=== PATIENT | female | born 1955 | race Caucasian/White ===

== ENCOUNTER 2018-12-07 07:40 | Outpatient (CLI) | payer BC ==
--- NOTE | 2018-12-15 09:13 | MMO ---
Bilateral MAMMO Bilat Screen [facility]. CLINICAL HISTORY: Patient is 63 years old and is seen for screening. The patient has no family history of breast cancer. The patient has no personal history of cancer. The patient has a history of left Lumpectomy at age 32 - benign. VIEWS: The views performed were: bilateral craniocaudal with tomosynthesis and bilateral mediolateral oblique with tomosynthesis. FILMS COMPARED: The present examination has been [facility] to [facility]2015 and 12/02/2017. This study has been interpreted with the assistance of computer-aided detection. MAMMOGRAM FINDINGS: There are scattered fibroglandular densities. There are stable benign appearing calcifications seen in the left breast. There are no suspicious masses, calcifications or areas of architectural distortion. There are no suspicious masses, suspicious calcifications, or new areas of architectural distortion. IMPRESSION: THERE IS NO MAMMOGRAPHIC EVIDENCE OF MALIGNANCY. A ROUTINE FOLLOW-UP MAMMOGRAM IN 1 YEAR IS RECOMMENDED. THE RESULTS OF THIS EXAM WERE SENT TO THE PATIENT. ACR BI-RADS Category 2 - Benign finding MAMMOGRAPHY NOTE: 1. A negative mammogram report should not delay a biopsy if a dominant of clinically suspicious mass is present. 2. Approximately 10% to 15% of breast cancers are not detected by mammography. 3. Adenosis and dense breasts may obscure an underlying neoplasm. Reported by: HU LOCKHART MD Electonically Signed: [id number]
== END 2018-12-07 07:41 | disposition home or self-care (01) ==
LOC: BICMAMMO 07:40
PROVIDERS: ATTEND Internal Medicine
DX: Z12.31 Encounter for screening mammogram for malignant neoplasm of breast (principal); Z91.89 Other specified personal risk factors, not elsewhere classified
CPT/HCPCS: 77063; 77067

== ENCOUNTER 2019-07-01 14:25 | Outpatient (CLI) | payer MEDICARE ==
--- NOTE | 2019-07-01 14:57 | RAD ---
Right hand 3 views HISTORY: Right hand pain. FINDINGS: Mild diffuse joint space narrowing. Osteophytosis most pronounced on the lateral view invol ving the distal interphalangeal joint of the index finger. Tiny nonspecific ossific fragments project posterior to the heads of the middle phalanges of all fingers. No acute fracture, dislocation, or aggressive osseous erosions. IMPRESSION : Mild osteoarthritic changes. No acute osseous abnormalities are demonstrated.
--- NOTE | 2019-07-01 14:59 | RAD ---
Left hand 3 views HISTORY: Pain. FINDINGS: Very mild widespread osteophytosis. Mild joint space narrowing at the distal interphalangea l joint of the index finger. Small intraosseous cyst at the medial head of the scaphoid. No acute fracture, dislocation, or aggressive osseous erosions. IMPRESSION : Mild osteoarthritic changes. No acute osseous abnormalities are demonstrated.
== END 2019-07-01 14:26 | disposition home or self-care (01) ==
LOC: BICRAD 14:25
PROVIDERS: ATTEND Internal Medicine
DX: M79.642 Pain in left hand (principal); M79.641 Pain in right hand; M19.042 Primary osteoarthritis, left hand; M19.041 Primary osteoarthritis, right hand
CPT/HCPCS: 36415; 83520; 85652; 86140; 86160; 86200; 86225; 86235; 86376

== ENCOUNTER 2019-07-28 13:44 | Outpatient (CLI) | payer MEDICARE ==
--- NOTE | 2019-07-28 17:12 | CT ---
CT CHEST WITHOUT CONTRAST: 07/28/19 INDICATIONS: Sarcoidosis. FINDINGS: The lungs are clear with no infiltrate. There is mild interstitial thickening seen diffusely bilatera lly, primarily in the periphery of both lung nicolas. This maybe secondary to the patient's diagnosis of sarcoidosis. There is mild stranding in the lower lobes posteriorly. There is no nodularity seen. Review of the mediastinum shows no evidence of adenopathy. No evidence of axillary adenopathy. Images through upper abdomen unremarkable. Osseous structures unremarkable with mild to moderate degenerati ve changes in the thoracic spine. Anterior osteophytes and end plate sclerosis is prominent at the T7 -T8 and T8-T9 levels. IMPRESSION: 1. Mild interstitial bilaterally. 2. CT chest otherwise unremarkable. No adenopathy. POS: AH
== END 2019-07-28 13:45 | disposition home or self-care (01) ==
LOC: BICCT 13:44
PROVIDERS: ATTEND Orthopaedic Surgery Hand Surgery
DX: D86.9 Sarcoidosis, unspecified (principal)
CPT/HCPCS: 71250

== ENCOUNTER 2019-12-10 08:54 | Outpatient (CLI) | payer MEDICARE ==
--- NOTE | 2019-12-10 09:42 | BD ---
EXAM: DEXA bone density examination HISTORY: 64-year-old postmenopausal female for screening COMPARISON: None FINDINGS: L1--bone mineral density 0.791 g/sq cm; T score -1.8 L2--bone mineral density 0.817 g/sq cm; T score -1.9 L3--bone mineral density 0.817 g/sq cm; T score -2.4 L4--bone mineral density 0.827 g/sq cm; T score -2.1 Total L1-L4--bone mineral density 0.814 g/sq cm; T score -2.1 Left femoral neck--bone mineral density0.700; T score -1.3 Total proximal left femur--bone mineral density 0.900; T score -0.3 IMPRESSION: Osteopenia. This patient has a 10 year WHO fracture risk of a major osteoporotic fracture of 8.5% and of a hip fracture of 0.8%.
--- NOTE | 2019-12-10 09:49 | MMO ---
Bilateral MAMMO Bilat Screen [facility]. CLINICAL HISTORY: Patient is 64 years old and is seen for screening. The patient has no family history of breast cancer. The patient has no personal history of cancer. The patient has a history of left Lumpectomy at age 32 - benign. VIEWS: The views performed were: bilateral craniocaudal with tomosynthesis and bilateral mediolateral oblique with tomosynthesis. FILMS COMPARED: The present examination has been compared to prior imaging [facility] at [facility], [facility] and [facility]. This study has been interpreted with the assistance of computer-aided detection. MAMMOGRAM FINDINGS: There are scattered fibroglandular densities. There are post operative changes seen in the left breast. There are no suspicious masses, suspicious calcifications, or new areas of architectural distortion. IMPRESSION: THERE IS NO MAMMOGRAPHIC EVIDENCE OF MALIGNANCY. A ROUTINE FOLLOW-UP MAMMOGRAM IN 1 YEAR IS RECOMMENDED. THE RESULTS OF THIS EXAM WERE SENT TO THE PATIENT. ACR BI-RADS Category 2 - Benign finding MAMMOGRAPHY NOTE: 1. A negative mammogram report should not delay a biopsy if a dominant of clinically suspicious mass is present. 2. Approximately 10% to 15% of breast cancers are not detected by mammography. 3. Adenosis and dense breasts may obscure an underlying neoplasm. Reported by: DONN BRICEÑO MD Electonically Signed: [id number]
== END 2019-12-10 08:55 | disposition home or self-care (01) ==
LOC: BICMAMMO 08:54
PROVIDERS: ATTEND Internal Medicine
DX: Z12.31 Encounter for screening mammogram for malignant neoplasm of breast (principal); M85.89 Other specified disorders of bone density and structure, multiple sites; Z91.89 Other specified personal risk factors, not elsewhere classified
CPT/HCPCS: 77063; 77067; 77080

== ENCOUNTER 2020-04-13 12:57 | Outpatient (CLI) | payer MEDICARE ==
--- NOTE | 2020-04-13 14:30 | MRI ---
MRI of thethoracic spine: 04/13/2020 COMPARISON:None available HISTORY:Thoracic spondylosis,Neck pain and back pain following an injury 2 weeks ago TECHNIQUE: Multiplanar multisequence MR imaging of thethoracic spine without contrast Findings:The sagittal STIR imaging demonstrates no focal area of thoracic spine vertebral body edema. No anterolisthesis or retrolisthesis is noted within the thoracic spine. There is no focal area of abnormal thoracic cord signal. T1-2: Mild facet hypertrophy with no central canal or neural foraminal stenosis. T2-3: Unremarkable T3-4: Mild bilateral facet hypertrophy with no significant central canal or neural foraminal stenosis . T4-5: Unremarkable T5-6: Unremarkable T6-7: Unremarkable T7-8: Disc space narrowing with disc desiccation and minimal disc bulge. Mild anterior osteophyte for mation. No central canal or neural foraminal stenosis. T8-9: Unremarkable. T9-10: Unremarkable. T10-11: Unremarkable. T11-12: Unremarkable. T12-L1: Unremarkable. T1 and T2 hyperintense vertebral body T2 and T9 lesion noted posteriorly, evidence of a benign shannan ioma. IMPRESSION:No significant central canal or neural foraminal stenosis.
--- NOTE | 2020-04-13 14:38 | MRI ---
MRI cervical spine noncontrast: 04/13/2020 HISTORY: 65-year-old female with new onset cervical radiculopathy COMPARISON: None FINDINGS: Vertebral body heights are maintained. No major bone marrow signal abnormality. Cervical spinal cord is normal in size and signal, with no extrinsic impingement. No evidence of strategic prominent focal disc herniation. C1-2: Normal C2-3: Moderate right facet DJD. Otherwise normal. C3-4: Small bilateral uncinate process osteophytes and severe right facet degenerative hypertrophy re sult in moderate right neural foraminal stenosis. No central spinal canal stenosis or left neural foraminal stenosis. Mild left facet DJD. Disc space maintained. C4-5: Minimal disc space narrowing. No central spinal canal stenosis. No high-grade neural foraminal stenosis. Moderate to severe left facet degenerative hypertrophy. Minimal right facet DJD. C5-6: Moderate disc space narrowing. Shallow, broad-based disc protrusion and minimal retrolisthesis of C5 on C6 encroach upon the ventral aspect of spinal canal causing mild central spinal canal stenosis. Small bilateral uncinate process osteophytes. Mild bilateral neural foraminal stenosis. Ess entially normal right facet joint. Mild left facet DJD. C6-7: Normal C7-T1: Mild to moderate disc space narrowing. Mild bilateral facet DJD, left greater than right. No c entral spinal canal stenosis. Mild bilateral neural foraminal stenosis. IMPRESSION: 1. Mild cervical spondylosis consisting of a few levels of mild degenerative disc disease, and right upper level high-grade facet osteoarthrosis. 2. No gross high-grade central spinal canal stenosis at any level. 3. Right neural foraminal stenosis at C4-5.
--- NOTE | 2020-04-13 14:55 | MRI ---
MR the lumbar spine without contrast: 04/13/2020 History: Lumbar radiculopathy COMPARISON: None. TECHNIQUE: Multiplanar multisequence MR images were obtained of lumbar spine without IV contrast FINDINGS: On the basis of 5 lumbar type vertebral bodies, conus medullaris terminates at [id number] level. Sagittal STIR imaging demonstrates no focal area of osseous marrow edema. T12-L1:Mild bilateral facet hypertrophy with no central canal or neural foraminal stenosis. L1-2:No central canal or neural foraminal stenosis. L2-3:Disc desiccation and mild disc bulge. Mild facet hypertrophy. No significant central canal or ne ural foraminal stenosis. L3-4:Disc desiccation and mild bilateral facet hypertrophy with no significant central canal or neura l foraminal stenosis. L4-5:Mild bilateral facet hypertrophy, disc desiccation, and disc space narrowing with no significant central canal or neural foraminal stenosis. L5-S1:Mild facet hypertrophy, right greater than left. No significant central canal or neural foramin al stenosis. Image retroperitoneal structures demonstrateno acute findings. IMPRESSION: No significant central canal or neural foraminal stenosis.
== END 2020-04-13 12:58 | disposition home or self-care (01) ==
LOC: BICMRI 12:57
PROVIDERS: ATTEND Internal Medicine
DX: M47.814 Spondylosis without myelopathy or radiculopathy, thoracic region (principal); M54.16 Radiculopathy, lumbar region; M47.22 Other spondylosis with radiculopathy, cervical region; M48.02 Spinal stenosis, cervical region; M50.30 Other cervical disc degeneration, unspecified cervical region
CPT/HCPCS: 72141; 72146; 72148

== ENCOUNTER 2020-04-20 12:00 | Outpatient (CLI) | payer MEDICARE | END 2020-04-20 12:01 | disposition home or self-care (01) | LOC: CT 12:00 | PROVIDERS: ATTEND Internal Medicine | DX: R22.2 Localized swelling, mass and lump, trunk (principal) | CPT/HCPCS: 70490 ==

== ENCOUNTER 2020-12-11 07:55 | Outpatient (CLI) | payer MEDICARE | END 2020-12-11 07:56 | disposition home or self-care (01) | LOC: BICMAMMO 07:55 | PROVIDERS: ATTEND Internal Medicine | DX: Z12.31 Encounter for screening mammogram for malignant neoplasm of breast (principal); Z98.890 Other specified postprocedural states; N64.89 Other specified disorders of breast | CPT/HCPCS: 77063; 77067 ==

== ENCOUNTER 2020-12-14 14:10 | Outpatient (CLI) | payer MEDICARE | END 2020-12-14 14:11 | disposition home or self-care (01) | LOC: BICMAMMO 14:10 | PROVIDERS: ATTEND Internal Medicine | DX: R92.2 Inconclusive mammogram (principal); N63.11 Unspecified lump in the right breast, upper outer quadrant | CPT/HCPCS: 76642; 77065; G0279 ==

== ENCOUNTER 2021-01-12 10:49 | Outpatient (CLI) | payer MEDICARE ==
[2021-01-12 12:30] LABS: #Eosinphils 0.1 10x3/uL (0.0-0.5); #Monocytes 0.5 10x3/uL (0.0-1.1); %Basophils 0.5 % (0.0-2.0); %Eosinophils 1.8 % (0.0-6.0); %Lymphocytes 35.4 % (18.0-47.0); %Monocytes 8.2 % (0.0-10.0); %Neutrophils 53.9 % (40.0-75.0); Hemoglobin 15.5 g/dL (12.0-15.5); Mean Corpuscular HGB CONC 33.9 g/dL (32.0-36.0); Mean Corpuscular Hemoglobin 30.9 pg (27.0-33.0); Mean Corpuscular Volume 91.2 fl (81.6-98.3); Mean Platelet Volume 12.2 fl (7.4-10.4); Platelet Count 191 10x3/uL (150-450); RBC Distribution Width 11.9 % (11.5-14.5); Red Blood Cell (RBC) Count 5.01 10x6/uL (3.90-5.03); White Blood Cell (WBC) Count 5.6 10x3/uL (3.5-10.5)
[2021-01-12 12:46] LABS: Anion Gap 15 mmol/L (10-20); BUN (Urea Nitrogen) 17 mg/dL (9.8-20.1); Calc. Creatinine Clearance 0 mL/min (70-130); Calcium 10.2 mg/dL (7.8-10.44); Carbon Dioxide 28 mmol/L (23-31); Chloride 103 mmol/L (98-107); Glucose 102 mg/dL (80-115); Potassium 4.4 mmol/L (3.5-5.1); Sodium 142 mmol/L (136-145)
[2021-01-12 23:18] LABS: SARS-CoV-2 PCR by NAA Not Detected (NotDetected)
== END 2021-01-12 10:50 | disposition home or self-care (01) ==
LOC: LABBT 10:49
PROVIDERS: ATTEND Specialist
DX: Z01.818 Encounter for other preprocedural examination (principal); N63.20 Unspecified lump in the left breast, unspecified quadrant; Z20.822 Contact with and (suspected) exposure to COVID-19
CPT/HCPCS: 80048; 85025; 93005; U0003; U0005; 93010

== ENCOUNTER 2021-01-16 08:55 | Day surgery (SDC) | payer MEDICARE ==
[2021-01-15 11:22] VITALS: BMI 27.1
[2021-01-16] MEDS ORDERED: Acetaminophen 500 MG TAB ONE (10:38)
[2021-01-16] MEDS ORDERED: Ketorolac Tromethamine 30 MG/ML VIAL ONE (10:38)
[2021-01-16] MEDS ORDERED: Bupivacaine 0.25% HCL 30 ML VIAL ONE (12:23)
[2021-01-16] MEDS ORDERED: Isosulfan Blue 50 MG/5 ML VIAL ONE (12:23)
[2021-01-16] MEDS ORDERED: Lidocaine 1% w/Epinephrine 1:100K 20 ML VIAL ONE (12:23)
[2021-01-16] MEDS ORDERED: Fentanyl 100 MCG/2 ML VIAL ONE (12:35)
[2021-01-16] MEDS ORDERED: Dexamethasone 20 MG/5 ML VIAL ONE (12:47)
[2021-01-16] MEDS ORDERED: PROPOFOL 200 MG/20 ML VIAL ONE (12:47)
[2021-01-16] MEDS ORDERED: Ondansetron PF 4 MG/2 ML Vial ONE (12:47)
[2021-01-16] MEDS ORDERED: Lidocaine 1% PF 5 ML VIAL ONE (12:47)
== END 2021-01-16 16:05 | disposition home or self-care (01) ==
LOC: SDC 08:55
PROVIDERS: ATTEND Specialist
PROC: 0HBU0ZZ Excision of Left Breast, Open Approach (ICD-10-PCS; principal; 2021-01-16)
PROC: 07B60ZX Excision of Left Axillary Lymphatic, Open Approach, Diagnostic (ICD-10-PCS; 2021-01-16)
DX: C50.412 Malignant neoplasm of upper-outer quadrant of left female breast (principal); C77.3 Secondary and unspecified malignant neoplasm of axilla and upper limb lymph nodes; M47.9 Spondylosis, unspecified; R73.03 Prediabetes; H81.09 Meniere's disease, unspecified ear; Z17.0 Estrogen receptor positive status [ER+]; Z79.899 Other long term (current) drug therapy; Z88.1 Allergy status to other antibiotic agents; Z88.2 Allergy status to sulfonamides; Z88.3 Allergy status to other anti-infective agents; Z91.041 Radiographic dye allergy status; Z91.013 Allergy to seafood
CPT/HCPCS: 19301; 38525; 38900; 76098; 78195; A9541; Q9968; 88307; 88342; J0690; J1100; J1885; J2405; J2704; J3010; S0020

== ENCOUNTER 2021-01-31 15:13 | Outpatient (CLI) | payer MEDICARE | END 2021-01-31 15:14 | disposition home or self-care (01) | LOC: BICRAD 15:13 | PROVIDERS: ATTEND Internal Medicine | DX: R07.81 Pleurodynia (principal) ==

== ENCOUNTER 2021-06-20 15:19 | Outpatient (CLI) | payer MEDICARE | END 2021-06-20 15:20 | disposition home or self-care (01) | LOC: BICMAMMO 15:19 | PROVIDERS: ATTEND Internal Medicine Hematology & Oncology | DX: Z13.820 Encounter for screening for osteoporosis (principal); T38.6X5A Adverse effect of antigonadotrophins, antiestrogens, antiandrogens, not elsewhere classified, initial encounter; C50.812 Malignant neoplasm of overlapping sites of left female breast; M85.89 Other specified disorders of bone density and structure, multiple sites | CPT/HCPCS: 77080 ==

== ENCOUNTER 2022-01-07 09:28 | Outpatient (CLI) | payer MEDICARE | END 2022-01-07 09:29 | disposition home or self-care (01) | LOC: BICMAMMO 09:28 | PROVIDERS: ATTEND Specialist | DX: Z12.31 Encounter for screening mammogram for malignant neoplasm of breast (principal); Z98.890 Other specified postprocedural states | CPT/HCPCS: 77066; G0279 ==

== ENCOUNTER 2022-06-24 08:41 | Outpatient (CLI) | payer MEDICARE | END 2022-06-24 08:42 | disposition home or self-care (01) | LOC: BICMAMMO 08:41 | PROVIDERS: ATTEND Internal Medicine Hematology & Oncology | DX: Z13.820 Encounter for screening for osteoporosis (principal); C50.812 Malignant neoplasm of overlapping sites of left female breast; M85.89 Other specified disorders of bone density and structure, multiple sites | CPT/HCPCS: 77080 ==

== ENCOUNTER 2023-01-08 08:38 | Outpatient (CLI) | payer MEDICARE | END 2023-01-08 08:39 | disposition home or self-care (01) | LOC: BICMAMMO 08:38 | PROVIDERS: ATTEND Specialist | DX: Z08 Encounter for follow-up examination after completed treatment for malignant neoplasm (principal); Z85.3 Personal history of malignant neoplasm of breast | CPT/HCPCS: 77066; G0279 ==

== ENCOUNTER 2024-01-12 08:32 | Outpatient (CLI) | payer MEDICARE | END 2024-01-12 08:33 | disposition home or self-care (01) | LOC: BICMAMMO 08:32 | PROVIDERS: ATTEND Specialist | DX: Z08 Encounter for follow-up examination after completed treatment for malignant neoplasm (principal); Z85.3 Personal history of malignant neoplasm of breast | CPT/HCPCS: 77066; G0279 ==